=== PATIENT | female | born 1945 | race Caucasian/White ===

== ENCOUNTER → 2017-03-01 09:58 | Outpatient (CLI) | payer MEDICARE, OTHER ==
[2016-01-08 08:24] VITALS: BMI 21.1
[~2017-03-01 09:58] MED LIST: BIOTIN5 MG PO; ESTRACE 0.0142.5 GM VG; FIBER THERAPY1368 GM PO; FISH OIL 1,2001 CAP PO; GLUCOSAMINE & C1 CAP PO; MAXALT10 MG PO; OS-CAL500 MG PO; PEPCID20 MG PO; PROPRANOLOL HCL80 MG PO; SYSTANE 0.3-0.4%5 ML EACH EYE; TRAVATAN Z2.5 ML EACH EYE; VITAMIN B COMPL1 TAB PO; VITAMIN D10000 UNI1
== END ==
LOC: D.MAMMO 09:58
DX: Z12.31 Encounter for screening mammogram for malignant neoplasm of breast (principal)

== ENCOUNTER → 2017-07-06 12:33 | Outpatient (CLI) | payer MEDICARE, OTHER ==
[2016-01-08 08:24] VITALS: BMI 21.1
== END | disposition home or self-care (01) ==
LOC: D.MRI 07-02 13:00
DX: M79.672 Pain in left foot (principal); S99.922A Unspecified injury of left foot, initial encounter; X58.XXXA Exposure to other specified factors, initial encounter; Y93.89 Activity, other specified; Y92.89 Other specified places as the place of occurrence of the external cause

== ENCOUNTER → 2018-03-29 17:07 | Outpatient (CLI) | payer MEDICARE, OTHER ==
[2016-01-08 08:24] VITALS: BMI 21.1
== END | disposition home or self-care (01) ==
LOC: D.MAMMO 15:15
DX: Z12.31 Encounter for screening mammogram for malignant neoplasm of breast (principal)

== ENCOUNTER → 2019-05-31 09:54 | Outpatient (CLI) | payer MEDICARE, BC ==
[2016-01-08 08:24] VITALS: BMI 21.1
== END | disposition home or self-care (01) ==
LOC: D.CT 09:54
PROVIDERS: ATTEND Family Medicine
DX: R91.1 Solitary pulmonary nodule (principal)

== ENCOUNTER → 2019-06-09 09:00 | Outpatient (CLI) | payer MEDICARE, BC ==
[2016-01-08 08:24] VITALS: BMI 21.1
== END | disposition home or self-care (01) ==
LOC: D.MAMMO 09:00
PROVIDERS: ATTEND Family Medicine
DX: Z12.31 Encounter for screening mammogram for malignant neoplasm of breast (principal)

== ENCOUNTER → 2019-07-12 22:15 | Outpatient (CLI) | payer MEDICARE, BC ==
[2016-01-08 08:24] VITALS: BMI 21.1
== END | disposition home or self-care (01) ==
LOC: D.MAMMO 14:30
PROVIDERS: ATTEND Family Medicine
DX: R92.8 Other abnormal and inconclusive findings on diagnostic imaging of breast (principal)

== ENCOUNTER → 2019-09-04 08:21 | Outpatient (CLI) | payer MEDICARE, BC ==
[2016-01-08 08:24] VITALS: BMI 21.1
== END | disposition home or self-care (01) ==
LOC: D.CT 08:21
PROVIDERS: ATTEND Family Medicine
DX: R91.1 Solitary pulmonary nodule (principal)

== ENCOUNTER → 2020-01-09 08:30 | Outpatient (CLI) | payer MEDICARE, BC ==
[2016-01-08 08:24] VITALS: BMI 21.1
== END | disposition home or self-care (01) ==
LOC: D.MAMMO 08:30
PROVIDERS: ATTEND Family Medicine
DX: R92.8 Other abnormal and inconclusive findings on diagnostic imaging of breast (principal)